=== PATIENT | male | born 1985 | race American Indian/Alaskan Native ===

== ENCOUNTER 2016-05-22 06:15 | Emergency (ER) | payer SELFPAY ==
[2016-05-22 06:27] VITALS: BP 154/104
[2016-05-22 06:53] LABS: Basophils % (Auto) 0.8 % (0.0-1.8); Eosinophils % (Auto) 2.7 % (0.0-4.3); Hematocrit 47.2 % (35.5-45.6); Hemoglobin 16.1 gm/dl (11.8-15.2); Mean Corpuscular HGB Conc 34 % (32-34); Mean Corpuscular Hemoglobin 31 pg (28-32); Mean Corpuscular Volume 90 fl (84-94); Platelet Count 195 K/mm3 (140-440); Red Blood Count 5.25 M/mm3 (3.65-5.03); Red Cell Distribution Width 13.7 % (13.2-15.2); White Blood Count 6.2 K/mm3 (4.5-11.0)
[2016-05-22 07:08] LABS: BUN/Creatinine Ratio 17.77; Blood Urea Nitrogen 16 mg/dL (9-20); Calcium 8.9 mg/dL (8.4-10.2); Carbon Dioxide 26 mmol/L (22-30); Chloride 106.1 mmol/L (98-107); Glucose 99 mg/dL (75-100); Potassium 3.9 mmol/L (3.6-5.0); Sodium 143 mmol/L (137-145)
[2016-05-22 07:24] LABS: Anion Gap 15 mmol/L
--- NOTE | 2016-05-22 10:44 | Emergency Department Report ---
Chief Complaint: Chest Pain Stated Complaint: CP Time Seen by Provider: 05/22/16 10:38 - HPI History of Present Illness: Patient here reports CP that woke him up at 0500 this morning. Denies radiation. Pain located to mid sternum and @ 4/10. reports pain is burning. PT has HTN and has not taken HCTZ in 6 months..Pain is worst when he takes a deep breath - ROS Review of Systems: All systems are negative unless stated in hpi above - Exam Vital Signs: Vital Signs 05/22/16 06:23 Temperature 98.2 F Pulse Rate 75 Respiratory 20 Rate Blood Pressure 154/104 O2 Sat by Pulse 100 Oximetry Physical Exam: General: This is a 31 yo male well nourished well developed and non toxic in appearance CV: S1S2. RRR Lungs: CTAB. NL work of breathing MSE screening note: Focused history and physical exam performed. Due to findings the following was ordered:see [facility] ED Medical Decision Making - Lab Data Result diagrams: 05/22/16 06:39 05/22/16 06:33 - Medical Decision Making MDM:1: seen by provider in triage 2: Protocol implemented for labs and/or Diagnostics 3: Patient to be seen by provider in main ED ED Disposition for MSE Condition: Stable
== END 2016-05-22 11:45 | disposition left against medical advice (07) ==
LOC: ED 06:15
DX: R07.2 Precordial pain (principal); I10 Essential (primary) hypertension; Z53.21 Procedure and treatment not carried out due to patient leaving prior to being seen by health care provider
CPT/HCPCS: 36415; 80048; 84484; 85025; 93005; 93010

== ENCOUNTER 2021-04-25 01:35 | Emergency (ER) | payer OTHER ==
--- NOTE | 2021-04-25 03:23 | Emergency Department Report ---
ED General Adult HPI - General Chief complaint: Syncope Stated complaint: SYNCOPE Time Seen by Provider: 04/25/21 02:32 Source: EMS Mode of arrival: Stretcher Limitations: No Limitations - History of Present Illness Initial comments: Patient is 36-year-old male with no significant past medical history. Patient presented to the ER via EMS from home for evaluation of syncopal episode. Patient said he went to the bathroom and all of a sudden he passed out. Patient stated that he was not out for a long period of time. No jerking movement. Patient stated that his witnessed the syncopal episode. He stated that he had some congestion runny nose and cough for the last few days and he was taking several saml-zsy-foimvwm medicine to help. He is complaining of mild headache. Denied any neck pain, chest pain or shortness of breath. He stated that he feels like he is back to normal. - Related Data Allergies Allergy/AdvReac Type Severity Reaction Status Date / Time Penicillins Allergy Unknown Verified 04/25/21 02:10 ED Review of Systems ROS: Stated complaint: SYNCOPE Other details as noted in HPI Comment: All other systems reviewed and negative Constitutional: denies: chills, fever Respiratory: cough. denies: shortness of breath, wheezing Cardiovascular: denies: chest pain, palpitations Gastrointestinal: denies: abdominal pain, nausea, vomiting, diarrhea, constipation, hematemesis, hematochezia Musculoskeletal: denies: back pain Neurological: denies: headache, weakness ED Past Medical Hx - Past Medical History Hx Hypertension: Yes ED Physical Exam - General Limitations: No Limitations General appearance: alert, in no apparent distress - Head Head exam: Present: atraumatic, normocephalic, normal inspection - Eye Eye exam: Present: normal appearance, PERRL - ENT ENT exam: Present: normal exam, normal orophraynx, mucous membranes moist - Neck Neck exam: Present: normal inspection, full ROM. Absent: tenderness, meningismus - Respiratory Respiratory exam: Present: normal lung sounds bilaterally - Cardiovascular Cardiovascular Exam: Present: regular rate, normal rhythm, normal heart sounds - GI/Abdominal GI/Abdominal exam: Present: soft, normal bowel sounds. Absent: distended, tenderness, guarding, rebound, rigid, organomegaly, mass, bruit, hernia - Extremities Exam Extremities exam: Present: normal inspection, full ROM, normal capillary refill. Absent: tenderness - Back Exam Back exam: Present: normal inspection, full ROM. Absent: CVA tenderness (R), CVA tenderness (L) - Neurological Exam Neurological exam: Present: alert, oriented X3, CN II-XII intact - Psychiatric Psychiatric exam: Present: normal mood - Skin Skin exam: Present: warm, intact, normal color ED Course Vital Signs 04/25/21 04/25/21 04/25/21 02:10 03:44 03:52 Temperature 99.1 F Pulse Rate 104 H 97 H Respiratory 18 20 Rate Blood Pressure 142/82 136/77 [Left] O2 Sat by Pulse 97 98 97 Oximetry ED Medical Decision Making - Lab Data Result diagrams: 04/25/21 02:48 04/25/21 02:48 - Radiology Data Radiology results: report reviewed - Medical Decision Making Patient is 36-year-old male with no significant past medical history. Patient presented to the ER via EMS from home for evaluation of syncopal episode. Patient said he went to the bathroom and all of a sudden he passed out. Patient stated that he was not out for a long period of time. No jerking movement. Patient stated that his witnessed the syncopal episode. He stated that he had some congestion runny nose and cough for the last few days and he was taking several unfa-ngx-nhicwwx medicine to help. He is complaining of mild headache. Denied any neck pain, chest pain or shortness of breath. He stated that he feels like he is back to normal. EKG is unremarkable. Labs reviewed and is negative for acute finding. CT brain is negative for acute finding. Patient symptoms most likely related to his over the counter medication patient advised to avoid excessive cough medication and advised to follow-up with his primary doctor in the next 2 to 3 days and to return to the ER if he develop any new symptoms. Critical care attestation.: If time is entered above; I have spent that time in minutes in the direct care of this critically ill patient, excluding procedure time. ED Disposition Clinical Impression: Syncope Disposition: 01 HOME / SELF CARE / HOMELESS Is pt being admited?: No Condition: Stable Instructions: Syncope (ED), Syncope Referrals: PRIMARY CARE, [Primary Care Provider] - 3-5 Days
--- NOTE | 2021-04-25 03:26 | Cat Scan Report ---
CT HEAD WITHOUT CONTRAST INDICATION / CLINICAL INFORMATION: Altered Mental Status. TECHNIQUE: All CT scans at this location are performed using CT dose reduction for ALARA by means of automated exposure control. COMPARISON: None available. FINDINGS: BRAIN PARENCHYMA: No acute intracranial hemorrhage. No evidence of recent infarct. No mass effect or midline shift. VENTRICULAR SYSTEM/EXTRA-AXIAL SPACES: Ventricles are normal for age. No extra-axial fluid collection . ORBITS: Normal as visualized. SKELETAL SYSTEM/SOFT TISSUES: Normal bones and soft tissues. PARANASAL SINUSES/MASTOID AIR CELLS: No significant abnormality. ADDITIONAL FINDINGS: None. IMPRESSION: 1. No acute intracranial abnormality. Signer Name: Primo Brody MD Signed: 04/25/2021 3:22 AM Workstation Name: [id number]
[2021-04-25 03:28] LABS: Basophils # (Auto) 0.1 K/mm3 (0.0-0.1); Eosinophils % (Auto) 0.3 % (0.0-4.3); Hemoglobin 15.9 gm/dl (11.8-15.2); Lymphocytes # (Auto) 1.1 K/mm3 (1.2-5.4); Lymphocytes % (Auto) 13.7 % (13.4-35.0); Mean Corpuscular HGB Conc 32 % (32-34); Mean Corpuscular Volume 93 fl (84-94); Monocytes # (Auto) 0.9 K/mm3 (0.0-0.8); Monocytes % (Auto) 11.4 % (0.0-7.3); Platelet Count 185 K/mm3 (140-440); Red Blood Count 5.27 M/mm3 (3.65-5.03); Red Cell Distribution Width 13.7 % (13.2-15.2)
[2021-04-25 03:39] LABS: BUN/Creatinine Ratio 12; Blood Urea Nitrogen 12 mg/dL (9-20); Calcium 8.8 mg/dL (8.4-10.2); Hemolysis Index 5
--- NOTE | 2021-04-25 04:30 | XRay Report ---
CHEST 1 VIEW 04/25/2021 4:07 AM INDICATION / CLINICAL INFORMATION: Cough. Syncope. COMPARISON: None available. FINDINGS: SUPPORT DEVICES: None. HEART / MEDIASTINUM: No significant abnormality. LUNGS / PLEURA: No significant pulmonary abnormality. No significant pleural effusion. No pneumothora x. ADDITIONAL FINDINGS: No significant additional findings. IMPRESSION: 1. No acute abnormality of the chest. Signer Name: Primo Brody MD Signed: 04/25/2021 4:26 AM Workstation Name: [id number]
[2021-04-25 04:38] VITALS: BP 136/77
--- NOTE | 2021-04-25 13:30 | Electrocardiograph Report ---
[facility] Test Date: 2021-04-25 Test Time: 03:37:19 Pat Name: TRUPTI MADRID Department: Room: Gender: M Research Laboratory Manager: MOY : 1985 Requested By: DORCAS HELLER Order Number: [id number] Reading MD: Marjan Vallecillo Measurements Intervals [place] Rate: 95 P: 37 OK: 165 QRS: 53 QRSD: 90 T: -13 QT: 345 QTc: 433 Interpretive Statements Sinus rhythm Normal ECG No previous ECG available for comparison Electronically Signed On 04-25-2021 13:30:18 EST by Marjan Vallecillo
== END 2021-04-25 05:49 | disposition home or self-care (01) ==
LOC: ED 01:35
DX: R55 Syncope and collapse (principal)
CPT/HCPCS: 36415; 70450; 71045; 80048; 84484; 85025; 93005; 99284